=== PATIENT | female | born 1935 | race Caucasian/White ===

== ENCOUNTER 2022-01-07 21:30 | Observation (INO) ==
[2022-01-07 22:47] LABS: Basophils # 0.1 10*3/uL (0.0-0.2); Eosinophils # 0.4 10*3/uL (0.0-0.87); Eosinophils % 5.1 % (0.00-10.9); Hematocrit 38.5 VOL% (35.7-47.0); Hemoglobin 12.9 GM/DL (12.0-16.0); Immature Granulocytes % 0.1 %; Immature Granulocytes Absolute 0.01 #; Lymphocytes # 2.4 10*3/uL (1.4-4.0); Lymphocytes % 35.3 % (21.3-54.2); Mean Corpuscular HGB Conc 33.5 GM/DL (32-36); Mean Corpuscular Volume 87.9 FL (87-102); Mean Platelet Volume 10.1 FL (9.6-12.0); Monocytes # 0.8 10*3/uL (0.11-0.8); Monocytes % 10.9 % (1.7-12.7); Neutrophils % 47.6 % (38.7-73.9); Platelet Count 220 T/CUMM (130-400); Red Blood Count 4.38 MC/CUMM (3.8-5.5); Red Cell Distribution Width 13.5 % (9.3-17.3); White Blood Count 6.9 T/CUMM (4-12)
[2022-01-07] MEDS ORDERED: SODIUM CHLORIDE 0.9% 1,000 ML IV STA (23:06)
[2022-01-07 23:09] LABS: Albumin 3.3 G/DL (3.4-5.0); Bilirubin,Total 0.8 MG/DL (0.20-1.00); Calcium 8.3 MG/DL (8.5-10.1); Free T4 (Free Thyroxine) 1.12 NG/DL (0.76-1.46); Osmolality,Calculated 286.8 MOS/KG (273-304); Thyroid Stimulating Hormone 3.01 uIU/ml (0.358-3.74)
[2022-01-08 00:43] LABS: Albumin 3.2 G/DL (3.4-5.0); Bilirubin,Total 0.8 MG/DL (0.20-1.00); Calcium 8.1 MG/DL (8.5-10.1); Osmolality,Calculated 290.6 MOS/KG (273-304); Total Protein 6.7 G/DL (6.4-8.2)
[2022-01-08] MEDS ORDERED: ONDANSETRON 4 MG/2 ML VIAL IV PRN (01:45)
[2022-01-08] MEDS ORDERED: ACETAMINOPHEN 325 MG TABLET PO PRN (01:45)
[2022-01-08] MEDS ORDERED: DOCUSATE SODIUM 100 MG CAPSULE PO PRN (01:45)
[2022-01-08] MEDS ORDERED: SODIUM CHLORIDE 0.9% 1,000 ML IV SCH (02:00)
[2022-01-08] MEDS: SODIUM CHLORIDE 0.45% 1,000 ML IV SCH ×3 (03:33→23:05)
[2022-01-08] MEDS ORDERED: POTASSIUM CHLORIDE 20 MEQ TABLET PO ONE (06:30)
[2022-01-08 07:50] LABS: Albumin 2.9 G/DL (3.4-5.0); Bilirubin,Total 0.9 MG/DL (0.20-1.00); Calcium 7.8 MG/DL (8.5-10.1); Osmolality,Calculated 286.7 MOS/KG (273-304); Total Protein 6.3 G/DL (6.4-8.2)
[2022-01-08 07:52] LABS: Basophils # 0.1 10*3/uL (0.0-0.2); Eosinophils # 0.3 10*3/uL (0.0-0.87); Eosinophils % 4.8 % (0.00-10.9); Hematocrit 36.8 VOL% (35.7-47.0); Hemoglobin 12.1 GM/DL (12.0-16.0); Immature Granulocytes % 0.5 %; Immature Granulocytes Absolute 0.03 #; Lymphocytes % 33.4 % (21.3-54.2); Mean Corpuscular HGB Conc 32.9 GM/DL (32-36); Mean Corpuscular Volume 89.1 FL (87-102); Mean Platelet Volume 10.2 FL (9.6-12.0); Monocytes # 0.6 10*3/uL (0.11-0.8); Monocytes % 9.3 % (1.7-12.7); Platelet Count 199 T/CUMM (130-400); Red Blood Count 4.13 MC/CUMM (3.8-5.5); Red Cell Distribution Width 13.6 % (9.3-17.3)
[2022-01-08] MEDS: ARIPiprazole 5 MG TABLET PO SCH (09:44)
[2022-01-08] MEDS: POTASSIUM CHLORIDE 20 MEQ TABLET PO SCH (09:44)
[2022-01-08] MEDS: CHOLECALCIFEROL 5,000 UNIT TABLET PO SCH (09:44)
[2022-01-08] MEDS: MEMANTINE 10 MG TABLET PO SCH ×2 (09:44→20:36)
[2022-01-08] MEDS ORDERED: QUEtiapine 100 MG TABLET PO SCH (21:00)
[2022-01-08] MEDS ORDERED: DONEPEZIL 10 MG TABLET PO SCH (21:00)
[2022-01-08] MEDS ORDERED: ESCITALOPRAM 10 MG TABLET PO SCH (21:00)
[2022-01-09 07:35] VITALS: BP 163/92
[2022-01-09] MEDS: ARIPiprazole 5 MG TABLET PO SCH (08:28)
[2022-01-09] MEDS: MEMANTINE 10 MG TABLET PO SCH (08:29)
[2022-01-09] MEDS: POTASSIUM CHLORIDE 20 MEQ TABLET PO SCH (08:29)
[2022-01-09] MEDS: CHOLECALCIFEROL 5,000 UNIT TABLET PO SCH (08:29)
[2022-01-09] MEDS ORDERED: POTASSIUM CHLORIDE 20 MEQ TABLET PO ONE (08:30)
== END 2022-01-09 08:55 ==
LOC: N.3E 21:30 → N.ED 21:30 → N.3E 01-08 02:26
PROVIDERS: ADMIT Internal Medicine; ATTEND Internal Medicine